=== PATIENT | female | born 1950 | race Caucasian/White ===

== ENCOUNTER → 2016-09-14 | Outpatient (CLI) | payer OTHER, MEDICARE ==
--- NOTE | 2016-09-14 13:49 | MA ---
Diagnostic Bilateral Digital Mammogram With Tomosynthesis Clinical Indications: Left breast pain, outer breast Technique: Standard digital cephalocaudal and tomosynthesis mediolateral oblique projections were ob tained. A true-lateral digital view is also performed of the left breast. The digital images were pro cessed by the [employer] computer aided detection system. Comparison: November 2014, September 2013, September 2012 and August 2011. Breast density: D; The breast tissue is extremely dense. This may lower the sensitivity of mammograph y. Findings: CAD was reviewed. No suspicious findings are identified. Impression: Negative mammogram. No source for left breast pain identified. . Recommendation: BI-RADS 0. Further imaging with ultrasound, which we will perform shortly. [facility] will send a result letter to the patient. Negative mammography should not preclude additional workup of a clinically suspicious finding. The patient's information is entered into a reminder system with a target due date for her next mammo gram.
--- NOTE | 2016-09-14 14:24 | US ---
Left Breast Ultrasound, complete History: Pain and has resolved, palpably "different" area felt by physician Technique: I first performed a directed physical examination. This was followed by ultrasound exam with a high frequency linear transducer. Findings: On physical examination there are some thin radially oriented ridges in the upper outer melly drant of the left breast that the patient states have been stable for many years. Ultrasound of the o uter breast is negative. Ultrasound of the remainder of the breast and axilla is also negative. No ma ss, sonographic architectural distortion or cyst is identified. Impression: Negative physical examination, mammogram and ultrasound. According to the patient, her br east pain has resolved. Recommendation: Return to screening mammography of both breasts in September 2017. Results and recommendation were discussed with the patient at the time of the examination, who is in agreement with the plan.
== END ==
LOC: FIMAGING 12:55
PROVIDERS: ATTEND Obstetrics & Gynecology
DX: N64.4 Mastodynia (principal)
CPT/HCPCS: 76641; G0204; G0279

== ENCOUNTER → 2017-10-25 | Outpatient (CLI) | payer OTHER, MEDICARE | LOC: FIMAGING 13:58 | PROVIDERS: ATTEND Obstetrics & Gynecology | DX: Z12.31 Encounter for screening mammogram for malignant neoplasm of breast (principal) ==

== ENCOUNTER → 2017-11-22 | Outpatient (CLI) | payer OTHER, MEDICARE | LOC: FIMAGING 09:03 | PROVIDERS: ATTEND Obstetrics & Gynecology | DX: N63.20 Unspecified lump in the left breast, unspecified quadrant (principal) ==

== ENCOUNTER → 2018-01-17 | Outpatient (CLI) | payer OTHER, MEDICARE | LOC: FIMAGING 08:52 | PROVIDERS: ATTEND Family Medicine | DX: Z13.820 Encounter for screening for osteoporosis (principal); M85.80 Other specified disorders of bone density and structure, unspecified site ==

== ENCOUNTER → 2018-11-21 | Outpatient (CLI) | payer OTHER, MEDICARE | LOC: FIMAGING 11:37 | PROVIDERS: ATTEND Obstetrics & Gynecology | DX: Z12.31 Encounter for screening mammogram for malignant neoplasm of breast (principal) ==